=== PATIENT | female | born 1995 | race Caucasian/White ===

== ENCOUNTER 2022-01-02 05:11 | Observation (INO) ==
[2022-01-02] MEDS ORDERED: IOPAMIDOL 100 ML BOTTLE IV ONE (05:12)
--- NOTE | 2022-01-02 05:27 | Emergency Department Note ---
Nausea/Vomiting/Diarrhea HPI General Chief complaint: Nausea/Vomiting/Diarrhea Stated complaint: vomiting Time Seen by Provider: 01/02/22 05:26 Source: patient Mode of arrival: wheelchair Limitations: no limitations History of Present Illness HPI Narrative: Narrative: 26-year-old female presents emerged department complaining of terrible diarrhea that began at 0 230 which is watery, and vomiting that began at 0 200. She states that she had a stomachache earlier in the day. She rates her discomfort as a 9 on a 0-to-10 scale. States it is constant. Nothing makes it better or worse. The location is diffuse abdomen. She says the pain radiates to her back. She states no one else around her has been ill. She was able to complete her shift of work which ended at 2 PM. Related Data Home Medications Medication Instructions Recorded Confirmed methocarbamol 750 mg tablet 750 mg PO QID 05/30/21 05/30/21 Previous Rx's Medication Instructions Recorded metronidazole 500 mg tablet 500 mg PO BID #14 tab 03/23/21 ondansetron HCl 4 mg tablet 4 mg PO Q8H PRN #30 tab 04/30/21 (Zofran) bupropion HCl 100 mg tablet 100 mg PO BID #60 tab 05/30/21 montelukast 10 mg tablet 10 mg PO QHS #90 tab 05/30/21 (Singulair) tramadol 50 mg tablet 50 mg PO BID PRN #60 tab 05/30/21 amoxicillin 875 mg-potassium 1 tab PO BID #20 tab 08/10/21 clavulanate 125 mg tablet (Augmentin) Allergies Allergy/AdvReac Type Severity Reaction Status Date / Time latex Allergy Mild Rash Verified 01/02/22 05:16 Review of Systems ROS ROS Narrative: Narrative: Constitutional: Denies fever Eyes: Denies eye discharge ENT ED: Denies throat pain or rhinorrhea Cardiovascular: Denies chest pain Respiratory: Denies shortness of breath Gastrointestinal: Reports abdominal pain, nausea, vomiting and diarrhea Musculoskeletal: Reports back pain Integumentary: Denies rash Neurological: Denies headache Hematological/Lymphatic: Denies easy bleeding PFSH Narrative Patient History Narrative: Narrative: Medical/Surgical/Family History All Active Problems Periodontal disease (Acute) Cervical lymphadenopathy (Acute) Chronic left shoulder pain (Acute) Chest pain (Acute) Allergies (Acute) AC joint pain (Acute) Left shoulder pain (Acute) Intractable nausea and vomiting (Acute) Cervical cancer screening (Acute) Dorsalgia of cervicothoracic region (Acute) Mood disorder (Chronic) Attention disturbance (Chronic) Congenital heart disease (Chronic) Wellness examination (Acute) Morbid obesity (Acute) Sialadenitis (Acute) Abscess, axilla (Acute) Gastroenteritis (Acute) Nausea, vomiting and diarrhea (Acute) Upper respiratory infection (Acute) Right otitis media (Acute) PFO (patent foramen ovale) (Chronic) Cigarette smoker (Chronic) Obesity (BMI 30.0-34.9) (Chronic) Panic disorder (Chronic) Medical History AC joint pain Allergies Attention disturbance Atypical chest pain Cervical cancer screening section wound seroma, Cigarette smoker Congenital heart disease Contusion of hand, right Costalchondritis Dorsalgia of cervicothoracic region Left shoulder pain Migraine Mood disorder Morbid obesity Obesity (BMI 30.0-34.9) Pain at surgical site Panic disorder PFO (patent foramen ovale) since ; no murmur; no procedures Transient global amnesia Wellness examination Wound drainage Surgical History History of cholecystectomy History of tubal ligation Previous section Status post cholecystectomy Family History Father Diabetes mellitus Mother Hypertensive disorder Malignant neoplasm of lung Diabetes mellitus Hypercholesterolemia Mental disorder Grandmother Chronic obstructive lung disease Maternal Pulmonary emphysema Maternal Heart disease Maternal Social History Smoking Status: Current every day smoker Alcohol Intake Frequency: holiday/special occasion only Substance Use: does not use Exam Narrative Narrative: Narrative: General Limitations: no limitations General appearance: Present alert and in distress Head Head: Present atraumatic and normocephalic Eye Eye: Present normal appearance; Absent scleral icterus ENT ENT: Present mucous membranes moist Neck Neck: Present normal inspection and trachea midline Respiratory Respiratory: Present normal lung sounds bilaterally; Absent respiratory distress Cardiovascular Cardiovascular: Present regular rate and tachycardia Adbominal Abdominal: Present soft and tenderness (Diffusely) Extremities Extremities: Present normal inspection Back Back: Present normal inspection and tenderness (Lumbar) Neurological Neurological: Present alert and oriented X3 Psychiatric Psychiatric: Present normal affect and normal mood Skin Skin: Present warm (WNL), dry and other (Significant amount of tattoos) Course Vital Signs Vital signs: Vital Signs Temperature 97.0 F 01/02/22 05:12 Pulse Rate 102 H 01/02/22 05:12 Respiratory Rate 22 01/02/22 05:12 Blood Pressure 124/92 01/02/22 05:12 Pulse Oximetry (%) 98 01/02/22 05:12 Temperature 97.0 F 01/02/22 05:12 Pulse Rate 118 H 01/02/22 11:01 Respiratory Rate 22 01/02/22 05:12 Blood Pressure 119/76 01/02/22 11:01 Pulse Oximetry (%) 95 01/02/22 11:01 MDM MDM Narrative Medical decision making narrative: Narrative: 26-year-old female presents to the emergency department with 3 hours of vomiting and 2 and half hours of diarrhea. Stomachache began earlier. Differential diagnosis includes SIRS, sepsis, gastrointestinal infection, food related illness, other Patient met SIRS criteria and a suspected gastrointestinal infection plus a heart rate of 102 and a respiratory rate greater than 20 (). (she did not have fever and white count is pending). Patient has been to be treated with Zofran 4 mg to control her nausea/vomiting and 4 mg of loperamide for the diarrhea. She will be fluid rehydrated with 30 mL/kg. Blood work is sent off to assess for sepsis. At 7 AM I signed the patient off to my colleague Dr. Valencia who will assume management of the patient and determination of disposition Lab Data Result diagrams: 01/02/22 06:10 01/02/22 06:10 Labs: Lab Results 01/02/22 01/02/22 01/02/22 Range/Units 06:10 06:10 06:10 WBC 9.6 (4.5-11.0) K/mcL RBC 4.98 (3.59-5.38) M/mcL Hgb 15.8 H (11.2-15.7) g/dL Hct 45.4 H (34.1-44.9) % MCV 91.2 (80.0-100.0) fL MCH 31.7 (26.0-34.0) pg MCHC 34.8 (31.0-36.0) g/dL RDW 11.5 (11.5-14.5) % Plt Count 174 (140-440) K/mcL MPV 10.6 H (7.4-10.4) fL Neut % (Auto) 86.8 H (38.0-78.0) % Lymph % (Auto) 5.6 L (15.5-49.0) % [place] % (Auto) 4.2 (1.0-12.0) % Eos % (Auto) 3.2 (0.0-7.0) % Baso % (Auto) 0.2 (0.0-2.0) % Lymph # (Auto) 0.54 L (1.50-4.80) K/mcL [place] # (Auto) 0.40 (0.10-0.90) K/mcL Eos # (Auto) 0.31 (0.00-0.70) K/mcL Baso # (Auto) 0.02 (0.00-0.30) K/mcL Absolute Neutrophils 8.33 H (1.80-8.00) K/mcL PT (11.9-14.5) sec INR (0.9-1.1) APTT (20.0-37.0) sec VBG Lactic Acid 1.3 (0.5-2.0) mmol/L Sodium 140 (133-145) mmol/L Potassium 3.6 (3.3-5.1) mmol/L Chloride 105 (96-108) mmol/L Carbon Dioxide 22 (22-30) mmol/L Anion Gap 13.0 (8.0-16.0) BUN 10 (6-20) mg/dL Creatinine 0.7 (0.6-1.1) mg/dL GFR Calculation 120 Glucose 113 H (70-105) mg/dL Calcium 9.0 (8.6-10.4) mg/dL Total Bilirubin 0.4 (0.1-1.0) mg/dL AST 19 (<32) U/L ALT 27 (<40) U/L Alkaline Phosphatase 70 (39-117) U/L Total Protein 7.0 (5.9-8.4) gm/dL Albumin 4.4 (3.2-5.2) gm/dL Globulin 2.6 (2.2-3.7) gm/dL Albumin/Globulin Ratio 1.7 (1.0-2.3) Urine Color Urine Appearance (Clear) Urine pH (5.0-9.0) Ur Specific [place] (1.000-1.035) Urine Protein (Negative) mg/dL Urine Glucose (UA) (Negative) mg/dL Urine Ketones (Negative) mg/dL Urine Occult Blood (Negative) mg/dL Urine Nitrate (Negative) Urine Bilirubin (Negative) mg/dL Urine Urobilinogen mg/dL Ur Leukocyte Esterase (Negative) /uL Ur Culture Indicated? 01/02/22 01/02/22 Range/Units 06:10 08:20 WBC (4.5-11.0) K/mcL RBC (3.59-5.38) M/mcL Hgb (11.2-15.7) g/dL Hct (34.1-44.9) % MCV (80.0-100.0) fL MCH (26.0-34.0) pg MCHC (31.0-36.0) g/dL RDW (11.5-14.5) % Plt Count (140-440) K/mcL MPV (7.4-10.4) fL Neut % (Auto) (38.0-78.0) % Lymph % (Auto) (15.5-49.0) % [place] % (Auto) (1.0-12.0) % Eos % (Auto) (0.0-7.0) % Baso % (Auto) (0.0-2.0) % Lymph # (Auto) (1.50-4.80) K/mcL [place] # (Auto) (0.10-0.90) K/mcL Eos # (Auto) (0.00-0.70) K/mcL Baso # (Auto) (0.00-0.30) K/mcL Absolute Neutrophils (1.80-8.00) K/mcL PT 13.7 (11.9-14.5) sec INR 1.0 (0.9-1.1) APTT 25.5 (20.0-37.0) sec VBG Lactic Acid (0.5-2.0) mmol/L Sodium (133-145) mmol/L Potassium (3.3-5.1) mmol/L Chloride (96-108) mmol/L Carbon Dioxide (22-30) mmol/L Anion Gap (8.0-16.0) BUN (6-20) mg/dL Creatinine (0.6-1.1) mg/dL GFR Calculation Glucose (70-105) mg/dL Calcium (8.6-10.4) mg/dL Total Bilirubin (0.1-1.0) mg/dL AST (<32) U/L ALT (<40) U/L Alkaline Phosphatase (39-117) U/L Total Protein (5.9-8.4) gm/dL Albumin (3.2-5.2) gm/dL Globulin (2.2-3.7) gm/dL Albumin/Globulin Ratio (1.0-2.3) Urine Color Yellow Urine Appearance Hazy A (Clear) Urine pH 5.0 (5.0-9.0) Ur Specific [place] 1.027 (1.000-1.035) Urine Protein Negative (Negative) mg/dL Urine Glucose (UA) Negative (Negative) mg/dL Urine Ketones Negative (Negative) mg/dL Urine Occult Blood Negative (Negative) mg/dL Urine Nitrate Negative (Negative) Urine Bilirubin Negative (Negative) mg/dL Urine Urobilinogen Negative mg/dL Ur Leukocyte Esterase Negative (Negative) /uL Ur Culture Indicated? No ED POC Tests ED POC Tests: HCG POC Results Negative Discharge Plan Patient/Caregiver Discharge Instructions Pt seen by GARMENT SORTER/PA only: No Patient Disposition: Still a Patient Condition: Fair Follow up with: No,PCP [Primary Care Provider] - Prescriptions: No Action methocarbamol 750 mg tablet 750 mg PO QID 0RF bupropion HCl 100 mg tablet 100 mg PO BID Qty: 60 3RF montelukast [Singulair] 10 mg tablet 10 mg PO QHS Qty: 90 3RF tramadol 50 mg tablet 50 mg PO BID PRN (Reason: pain) Qty: 60 0RF metronidazole 500 mg tablet 500 mg PO BID Qty: 14 0RF ondansetron HCl [Zofran] 4 mg tablet 4 mg PO Q8H PRN (Reason: nausea and vomiting) Qty: 30 0RF amoxicillin-pot clavulanate [Augmentin] 875-125 mg tablet 1 tab PO BID Qty: 20 0RF
[2022-01-02] MEDS ORDERED: ONDANSETRON 4 MG ODT TABLET SL ONE (05:35)
[2022-01-02] MEDS ORDERED: LOPERAMIDE 2 MG CAPSULE PO ONE (05:35)
[2022-01-02] MEDS ORDERED: 0.9 % SODIUM CHLORIDE 1,000 ML IV ONE (05:35)
[2022-01-02] MEDS ORDERED: 0.9 % SODIUM CHLORIDE 1,710 ML IV ONE (05:54)
[2022-01-02 06:50] LABS: Basophils # (Auto) 0.02 K/mcL (0.00-0.30); Basophils % (Auto) 0.2 % (0.0-2.0); Eosinophils # (Auto) 0.31 K/mcL (0.00-0.70); Eosinophils % (Auto) 3.2 % (0.0-7.0); Hematocrit 45.4 % (34.1-44.9); Hemoglobin 15.8 g/dL (11.2-15.7); Lymphocytes # (Auto) 0.54 K/mcL (1.50-4.80); Lymphocytes % (Auto) 5.6 % (15.5-49.0); Mean Cell Volume 91.2 fL (80.0-100.0); Mean Corpuscular HGB Conc 34.8 g/dL (31.0-36.0); Mean Platelet Volume 10.6 fL (7.4-10.4); Monocytes % (Auto) 4.2 % (1.0-12.0); Neutrophils % (Auto) 86.8 % (38.0-78.0); Platelet Count 174 K/mcL (140-440); RBC 4.98 M/mcL (3.59-5.38); Red Cell Distribution Width 11.5 % (11.5-14.5); WBC 9.6 K/mcL (4.5-11.0)
[2022-01-02] MEDS ORDERED: ONDANSETRON 4 MG/2 ML VIAL IV ONE (06:54)
[2022-01-02 07:01] LABS: Partial Thromboplastin Time 25.5 sec (20.0-37.0)
[2022-01-02 07:02] LABS: Prothrombin Time 13.7 sec (11.9-14.5)
[2022-01-02 07:10] LABS: ALT/SGPT 27 U/L (<40); AST/SGOT 19 U/L (<32); Albumin 4.4 gm/dL (3.2-5.2); Albumin/Globulin Ratio 1.7 (1.0-2.3); Alkaline Phosphatase 70 U/L (39-117); Bilirubin,Total 0.4 mg/dL (0.1-1.0); Blood Urea Nitrogen 10 mg/dL (6-20); Carbon Dioxide 22 mmol/L (22-30); Chloride 105 mmol/L (96-108); Globulin 2.6 gm/dL (2.2-3.7); Glomerular Filtration Rate 120; Glucose 113 mg/dL (70-105)
--- NOTE | 2022-01-02 08:16 | Emergency Department Note ---
Course Vital Signs Vital signs: Vital Signs Temperature 36.1 C 01/02/22 05:12 Pulse Rate 102 H 01/02/22 05:12 Respiratory Rate 22 01/02/22 05:12 Blood Pressure 124/92 01/02/22 05:12 Pulse Oximetry (%) 98 01/02/22 05:12 Temperature 36.1 C 01/02/22 05:12 Pulse Rate 108 H 01/02/22 12:40 Respiratory Rate 12 01/02/22 12:40 Blood Pressure 96/53 01/02/22 12:40 Pulse Oximetry (%) 95 01/02/22 12:40 MDM MDM Narrative Medical decision making narrative: Narrative: Patient who presented with less than 1 day of acute watery nausea vomiting diarrhea some generalized abdominal pain now a bit left lower quadrant evaluated by Dr. Casiano. Signed out to me pending lab results and final disposition On my evaluation she is resting comfortably in bed heart rate still tracely tachycardic but overall says she is feeling better no longer actively vomiting. On abdominal exam it is completely benign nontender throughout. CBC shows no leukocytosis, no anemia, coags within normal, lactic acid is normal 1.3, electrolytes also unremarkable bilirubin and LFTs normal Awaiting urinalysis Urinalysis negative for infection negative Does feel better on reevaluation still has some mild generalized abdominal discomfort exam is benign but she is still tachycardic around 110 has received her IV fluids. Will obtain CT of the abdomen CT shows enteritis suspected Reevaluation patient tolerated a p.o. challenge however heart rate still remains around 115 despite 2.7 L of IV fluids, overall does feel improved however given her persistent tachycardia in the setting of what appears to be a likely viral GI illness did speak with hospitalist who is agreeable for observation admission. Likely benefit from some further gradual hydration and symptom control. I do not see any evidence of bacterial infection or indication for antibiotics at this time. Lab Data Result diagrams: 01/02/22 06:10 01/02/22 06:10 Labs: Lab Results 01/02/22 01/02/22 01/02/22 Range/Units 06:10 06:10 06:10 WBC 9.6 (4.5-11.0) K/mcL RBC 4.98 (3.59-5.38) M/mcL Hgb 15.8 H (11.2-15.7) g/dL Hct 45.4 H (34.1-44.9) % MCV 91.2 (80.0-100.0) fL MCH 31.7 (26.0-34.0) pg MCHC 34.8 (31.0-36.0) g/dL RDW 11.5 (11.5-14.5) % Plt Count 174 (140-440) K/mcL MPV 10.6 H (7.4-10.4) fL Neut % (Auto) 86.8 H (38.0-78.0) % Lymph % (Auto) 5.6 L (15.5-49.0) % [place] % (Auto) 4.2 (1.0-12.0) % Eos % (Auto) 3.2 (0.0-7.0) % Baso % (Auto) 0.2 (0.0-2.0) % Lymph # (Auto) 0.54 L (1.50-4.80) K/mcL [place] # (Auto) 0.40 (0.10-0.90) K/mcL Eos # (Auto) 0.31 (0.00-0.70) K/mcL Baso # (Auto) 0.02 (0.00-0.30) K/mcL Absolute Neutrophils 8.33 H (1.80-8.00) K/mcL PT (11.9-14.5) sec INR (0.9-1.1) APTT (20.0-37.0) sec VBG Lactic Acid 1.3 (0.5-2.0) mmol/L Sodium 140 (133-145) mmol/L Potassium 3.6 (3.3-5.1) mmol/L Chloride 105 (96-108) mmol/L Carbon Dioxide 22 (22-30) mmol/L Anion Gap 13.0 (8.0-16.0) BUN 10 (6-20) mg/dL Creatinine 0.7 (0.6-1.1) mg/dL GFR Calculation 120 Glucose 113 H (70-105) mg/dL Calcium 9.0 (8.6-10.4) mg/dL Total Bilirubin 0.4 (0.1-1.0) mg/dL AST 19 (<32) U/L ALT 27 (<40) U/L Alkaline Phosphatase 70 (39-117) U/L Total Protein 7.0 (5.9-8.4) gm/dL Albumin 4.4 (3.2-5.2) gm/dL Globulin 2.6 (2.2-3.7) gm/dL Albumin/Globulin Ratio 1.7 (1.0-2.3) Urine Color Urine Appearance (Clear) Urine pH (5.0-9.0) Ur Specific [place] (1.000-1.035) Urine Protein (Negative) mg/dL Urine Glucose (UA) (Negative) mg/dL Urine Ketones (Negative) mg/dL Urine Occult Blood (Negative) mg/dL Urine Nitrate (Negative) Urine Bilirubin (Negative) mg/dL Urine Urobilinogen mg/dL Ur Leukocyte Esterase (Negative) /uL Ur Culture Indicated? 01/02/22 01/02/22 Range/Units 06:10 08:20 WBC (4.5-11.0) K/mcL RBC (3.59-5.38) M/mcL Hgb (11.2-15.7) g/dL Hct (34.1-44.9) % MCV (80.0-100.0) fL MCH (26.0-34.0) pg MCHC (31.0-36.0) g/dL RDW (11.5-14.5) % Plt Count (140-440) K/mcL MPV (7.4-10.4) fL Neut % (Auto) (38.0-78.0) % Lymph % (Auto) (15.5-49.0) % [place] % (Auto) (1.0-12.0) % Eos % (Auto) (0.0-7.0) % Baso % (Auto) (0.0-2.0) % Lymph # (Auto) (1.50-4.80) K/mcL [place] # (Auto) (0.10-0.90) K/mcL Eos # (Auto) (0.00-0.70) K/mcL Baso # (Auto) (0.00-0.30) K/mcL Absolute Neutrophils (1.80-8.00) K/mcL PT 13.7 (11.9-14.5) sec INR 1.0 (0.9-1.1) APTT 25.5 (20.0-37.0) sec VBG Lactic Acid (0.5-2.0) mmol/L Sodium (133-145) mmol/L Potassium (3.3-5.1) mmol/L Chloride (96-108) mmol/L Carbon Dioxide (22-30) mmol/L Anion Gap (8.0-16.0) BUN (6-20) mg/dL Creatinine (0.6-1.1) mg/dL GFR Calculation Glucose (70-105) mg/dL Calcium (8.6-10.4) mg/dL Total Bilirubin (0.1-1.0) mg/dL AST (<32) U/L ALT (<40) U/L Alkaline Phosphatase (39-117) U/L Total Protein (5.9-8.4) gm/dL Albumin (3.2-5.2) gm/dL Globulin (2.2-3.7) gm/dL Albumin/Globulin Ratio (1.0-2.3) Urine Color Yellow Urine Appearance Hazy A (Clear) Urine pH 5.0 (5.0-9.0) Ur Specific [place] 1.027 (1.000-1.035) Urine Protein Negative (Negative) mg/dL Urine Glucose (UA) Negative (Negative) mg/dL Urine Ketones Negative (Negative) mg/dL Urine Occult Blood Negative (Negative) mg/dL Urine Nitrate Negative (Negative) Urine Bilirubin Negative (Negative) mg/dL Urine Urobilinogen Negative mg/dL Ur Leukocyte Esterase Negative (Negative) /uL Ur Culture Indicated? No ED POC Tests ED POC Tests: HCG POC Results Negative Discharge Plan Patient/Caregiver Discharge Instructions Pt seen by PICKING SUPERVISOR/PA only: No Clinical Impression: Gastroenteritis, Nausea & vomiting, Diarrhea Patient Disposition: Xfer As Outpt/Obs ([facility]) Condition: Fair Follow up with: No,PCP [Primary Care Provider] - Prescriptions: No Action methocarbamol 750 mg tablet 750 mg PO QID 0RF bupropion HCl 100 mg tablet 100 mg PO BID Qty: 60 3RF montelukast [Singulair] 10 mg tablet 10 mg PO QHS Qty: 90 3RF tramadol 50 mg tablet 50 mg PO BID PRN (Reason: pain) Qty: 60 0RF metronidazole 500 mg tablet 500 mg PO BID Qty: 14 0RF ondansetron HCl [Zofran] 4 mg tablet 4 mg PO Q8H PRN (Reason: nausea and vomiting) Qty: 30 0RF amoxicillin-pot clavulanate [Augmentin] 875-125 mg tablet 1 tab PO BID Qty: 20 0RF
[2022-01-02] MEDS ORDERED: diphenhydrAMINE 50 MG/ML VIAL IV ONE (08:31)
[2022-01-02] MEDS ORDERED: METOCLOPRAMIDE 10 MG/2 ML VIAL IV ONE (08:31)
[2022-01-02 09:56] LABS: Appearance,Urine HAZY (Clear); Bilirubin,Urine Negative (Negative); Color,Urine YELLOW; Culture Indicated,Urine No; Glucose,Urine (UA) Negative (Negative); Ketones,Urine Negative (Negative); Leukocyte Esterase,Urine Negative /uL (Negative); Nitrate,Urine Negative (Negative); Protein,Urine Negative (Negative); Specific Gravity,Urine 1.027 (1.000-1.035); Urine Blood Negative (Negative); Urobilinogen,Urine Negative
--- NOTE | 2022-01-02 11:00 | Cat Scan Report ---
History: Left lower quadrant pain with vomiting and diarrhea technique: Following injection of intravenous nonionic contrast the patient was imaged during the portal venous phase from above the diaphragm through the symphysis pubis. Sagittal and coronal reformats were created. The radiation exposure was limited using dose reduction technology area FINDINGS: The lung bases are clear. The liver is normal in size. There is a small zone of focal fatty infiltrates in the left lobe adjacent to the falciform ligament. The gallbladder is been removed and there are clips in the gallbladder fossa. The bile ducts are nondilated. The spleen is normal in size and homogeneous. There is no mass or inflammation the pancreas. The adrenals and kidneys are normal. There is no kidney stone or radiographic evidence of pyelonephritis. The aorta and inferior vena cava are normal. There is no plaque formation. The uterus and left ovary are normal. There is a 1.5 x 2.2 cm cyst in the right ovary. This is probably a dominant follicle. The ring-enhancing corpus luteum seen in the right ovary on the prior CT done on 04/30/21 has resolved. The stomach contains a moderate amount of fluid. The wall is normal in thickness. There is also a moderate amount of fluid throughout the small intestine from the duodenum to the terminal ileum. Several loops of distal jejunum or proximal ileum in the left mid abdomen are mildly dilated and measure up to 3.9 cm transverse dimension. The terminal ileum measures 2.5 cm in diameter. At the ileocecal valve there is a small fat-containing lipoma. There is no evidence of a mass in or adjacent to the small bowel. The wall of the small intestine is not thickened or inflamed. There are very few air-fluid levels. Large intestine is largely decompressed and appears normal. The appendix is noninflamed. There is no ascites adenopathy mass or abscess within the abdomen or pelvis. Comparison with the prior CT from 04/30/21 shows the dilatation of the small bowel is a recurrent finding. IMPRESSION: Mildly dilated small intestine without evidence of inflammation or mechanical blockage. This may be due to enteritis. Dr. Valencia was called with the report Interpreted and Authenticated by: Prateek Noguera 01/02/22
--- NOTE | 2022-01-02 13:08 | Internal Med History&Physical ---
HPI History of Present Illness Patient information: Note initiated : 01/02/22 at 1:06 pm Service Date, if different from initiated Date: [] Patient: Chayito Roach a 26 y/o F admitted on for Vomiting. Chief Complaint: [] History of present illness: Ms. Roach is a 26 year old F who presents to the ER this morning with abrupt onset and progressive nausea, vomiting, diarrhea that started around late afternoon yesterday after she came back from work. She also complains of associated abdominal pain 4 out of 10 without radiation made worse during retching episodes, she however denies melena/hematochezia. She has had one episode of food poisoning few months ago but denies any recent precipitating events. She endorses to lightheadedness weakness dizziness. She is experience over 7 episodes of diarrhea in 24 hours. Initial work-up in the ER was consistent with SIRS/volume depletion. Patient was started on crystalloids and subsequently hospitalist service was consulted after she failed to improve despite 3 L of crystalloid boluses. At the time of my evaluation patient is alert and oriented. She is able to answer most the question. Her symptoms have since improved. She endorses history as above. She denies changes in medications, using laxative, fever, chills, joint pain or rash. She denies weight loss ROS 10 point review system was performed and is negative except as above PFSH PFSH All Active Problems (Updated 01/02/22 @ 13:11 by Jeb Valencia DO) Periodontal disease (Acute) Cervical lymphadenopathy (Acute) Chronic left shoulder pain (Acute) Chest pain (Acute) Gastroenteritis (Acute) Nausea & vomiting (Acute) Diarrhea (Acute) Allergies (Acute) AC joint pain (Acute) Left shoulder pain (Acute) Intractable nausea and vomiting (Acute) Cervical cancer screening (Acute) Dorsalgia of cervicothoracic region (Acute) Mood disorder (Chronic) Attention disturbance (Chronic) Congenital heart disease (Chronic) Wellness examination (Acute) Morbid obesity (Acute) Sialadenitis (Acute) Abscess, axilla (Acute) Gastroenteritis (Acute) Nausea, vomiting and diarrhea (Acute) Upper respiratory infection (Acute) Right otitis media (Acute) PFO (patent foramen ovale) (Chronic) Cigarette smoker (Chronic) Obesity (BMI 30.0-34.9) (Chronic) Panic disorder (Chronic) Medical History AC joint pain Allergies Attention disturbance Atypical chest pain Cervical cancer screening section wound seroma, Cigarette smoker Congenital heart disease Contusion of hand, right Costalchondritis Dorsalgia of cervicothoracic region Left shoulder pain Migraine Mood disorder Morbid obesity Obesity (BMI 30.0-34.9) Pain at surgical site Panic disorder PFO (patent foramen ovale) since ; no murmur; no procedures Transient global amnesia Wellness examination Wound drainage Surgical History History of cholecystectomy History of tubal ligation Previous section Status post cholecystectomy Family History Father Diabetes mellitus Mother Hypertensive disorder Malignant neoplasm of lung Diabetes mellitus Hypercholesterolemia Mental disorder Grandmother Chronic obstructive lung disease Maternal Pulmonary emphysema Maternal Heart disease Maternal Social History (Updated 02/15/21 @ 11:14 by Jessica Burgos) lives independently: Yes marital status: education level: high school occupational status: employed occupation: Shampoo Assistant sexually active: Yes physical activity: none smoking status: Current every day smoker alcohol intake frequency: holiday/special occasion only substance use type: does not use seatbelt use: always working smoke detector in home: Yes firearms in home: Yes MEDS/ALLERGIES Home Medications and Allergies Home Medications Medication Instructions Recorded Confirmed Type metronidazole 500 mg tablet 500 mg PO BID #14 tab 03/23/21 01/03/22 Rx ondansetron HCl 4 mg tablet 4 mg PO Q8H PRN #30 tab 04/30/21 01/03/22 Rx (Zofran) bupropion HCl 100 mg tablet 100 mg PO BID #60 tab 05/30/21 01/03/22 Rx methocarbamol 750 mg tablet 750 mg PO QID 05/30/21 01/03/22 History montelukast 10 mg tablet 10 mg PO QHS #90 tab 05/30/21 01/03/22 Rx (Singulair) tramadol 50 mg tablet 50 mg PO BID PRN #60 tab 05/30/21 01/03/22 Rx amoxicillin 875 mg-potassium 1 tab PO BID #20 tab 08/10/21 01/03/22 Rx clavulanate 125 mg tablet (Augmentin) Allergies Allergy/AdvReac Type Severity Reaction Status Date / Time latex Allergy Mild Rash Verified 01/02/22 05:16 EXAM Constitutional Vitals: Temp Pulse Resp BP Pulse Ox 97.0 F 108 H 12 96/53 95 01/02/22 05:12 01/02/22 12:40 01/02/22 12:40 01/02/22 12:40 01/02/22 12:40 Exam: Head appears normocephalic Oral cavity moist No ear or nose discharge Eyemovement symmetrical S1-S2 tachycardia on tele Nonlabored breathing Nondistended abdomen Lower extremity no cyanosis clubbing or joint swelling Skin no suspicious lesion Psych anxious but no hallucination Neuro normal higher function DATA Data Completed and Pending Labs: Labs from last 24 hours 01/02/22 01/02/22 01/02/22 08:20 06:10 06:10 WBC RBC Hgb Hct MCV MCH MCHC RDW Plt Count MPV Neut % (Auto) Lymph % (Auto) [place] % (Auto) Eos % (Auto) Baso % (Auto) Lymph # (Auto) [place] # (Auto) Eos # (Auto) Baso # (Auto) Absolute Neutrophils PT 13.7 INR 1.0 APTT 25.5 VBG Lactic Acid 1.3 Sodium Potassium Chloride Carbon Dioxide Anion Gap BUN Creatinine GFR Calculation Glucose Calcium Total Bilirubin AST ALT Alkaline Phosphatase Total Protein Albumin Globulin Albumin/Globulin Ratio Urine Color Yellow Urine Appearance Hazy A Urine pH 5.0 Ur Specific [place] 1.027 Urine Protein Negative Urine Glucose (UA) Negative Urine Ketones Negative Urine Occult Blood Negative Urine Nitrate Negative Urine Bilirubin Negative Urine Urobilinogen Negative Ur Leukocyte Esterase Negative Ur Culture Indicated? No 01/02/22 01/02/22 06:10 06:10 WBC 9.6 RBC 4.98 Hgb 15.8 H Hct 45.4 H MCV 91.2 MCH 31.7 MCHC 34.8 RDW 11.5 Plt Count 174 MPV 10.6 H Neut % (Auto) 86.8 H Lymph % (Auto) 5.6 L [place] % (Auto) 4.2 Eos % (Auto) 3.2 Baso % (Auto) 0.2 Lymph # (Auto) 0.54 L [place] # (Auto) 0.40 Eos # (Auto) 0.31 Baso # (Auto) 0.02 Absolute Neutrophils 8.33 H PT INR APTT VBG Lactic Acid Sodium 140 Potassium 3.6 Chloride 105 Carbon Dioxide 22 Anion Gap 13.0 BUN 10 Creatinine 0.7 GFR Calculation 120 Glucose 113 H Calcium 9.0 Total Bilirubin 0.4 AST 19 ALT 27 Alkaline Phosphatase 70 Total Protein 7.0 Albumin 4.4 Globulin 2.6 Albumin/Globulin Ratio 1.7 Urine Color Urine Appearance Urine pH Ur Specific [place] Urine Protein Urine Glucose (UA) Urine Ketones Urine Occult Blood Urine Nitrate Urine Bilirubin Urine Urobilinogen Ur Leukocyte Esterase Ur Culture Indicated? A/P Narrative A/P Narrative: 26-year-old with acute gastroenteritis/volume depletion * Acute gastroenteritis-likely infectious. Continue supportive treatment/crystalloid/antinausea medications. * SIRS continue crystalloids * Severe volume depletion continue crystalloids * Anxiety disorder continue bupropion * Prophylaxis early ambulation PLAN * Obs admit * Supportive treatment Time Spent With Patient Time: Total time spent is greater than 50% in coordination of care (as documented) at patient's floor/unit and/or counseling patient:
[2022-01-02] MEDS ORDERED: MAGNESIUM SULFATE 2 GM/50 ML BAG IV PRN (13:53)
[2022-01-02] MEDS ORDERED: ONDANSETRON 4 MG/2 ML VIAL IV PRN (13:53)
[2022-01-02] MEDS ORDERED: ACETAMINOPHEN 650 MG/65 ML BAG IV PRN (13:53)
[2022-01-02] MEDS ORDERED: guaiFENesin/CODEINE 10 ML UDC PO PRN (13:53)
[2022-01-02] MEDS ORDERED: POTASSIUM CHLORIDE 40 MEQ in DEXTROSE 5% IN WATER 500 ML IV PRN (13:53)
[2022-01-02] MEDS ORDERED: ONDANSETRON 4 MG ODT TABLET SL PRN (13:53)
[2022-01-02] MEDS ORDERED: MELATONIN 3 MG TABLET PO PRN (13:53)
[2022-01-02] MEDS: LACTATED RINGERS 1,000 ML IV SCH (15:18)
[2022-01-02] MEDS: ACETAMINOPHEN 325 MG TABLET PO PRN ×2 (15:18→21:17)
[2022-01-02] MEDS: 0.9 % SODIUM CHLORIDE 1,000 ML IV SCH (16:47)
[2022-01-03] MEDS: LACTATED RINGERS 1,000 ML IV SCH ×4 (00:35→18:44)
[2022-01-03 06:36] LABS: Basophils # (Auto) 0.01 K/mcL (0.00-0.30); Basophils % (Auto) 0.3 % (0.0-2.0); Eosinophils # (Auto) 0.11 K/mcL (0.00-0.70); Hematocrit 39.4 % (34.1-44.9); Hemoglobin 13.7 g/dL (11.2-15.7); Lymphocytes # (Auto) 0.88 K/mcL (1.50-4.80); Lymphocytes % (Auto) 24.3 % (15.5-49.0); Mean Cell Volume 92.1 fL (80.0-100.0); Mean Corpuscular HGB Conc 34.8 g/dL (31.0-36.0); Monocytes % (Auto) 8.3 % (1.0-12.0); Neutrophils % (Auto) 64.1 % (38.0-78.0); Platelet Count 132 K/mcL (140-440); RBC 4.28 M/mcL (3.59-5.38); Red Cell Distribution Width 11.3 % (11.5-14.5); WBC 3.6 K/mcL (4.5-11.0)
[2022-01-03 06:59] LABS: ALT/SGPT 20 U/L (<40); AST/SGOT 16 U/L (<32); Albumin 3.4 gm/dL (3.2-5.2); Albumin/Globulin Ratio 1.4 (1.0-2.3); Alkaline Phosphatase 54 U/L (39-117); Bilirubin,Direct < 0.2 mg/dL (0-0.3); Bilirubin,Total 0.4 mg/dL (0.1-1.0); Blood Urea Nitrogen 4 mg/dL (6-20); Calcium 8.4 mg/dL (8.6-10.4); Carbon Dioxide 22 mmol/L (22-30); Chloride 104 mmol/L (96-108); Globulin 2.5 gm/dL (2.2-3.7); Glomerular Filtration Rate 126; Glucose 74 mg/dL (70-105); Lactate Dehydrogenase 165 U/L (135-225); Phosphorous 2.2 mg/dL (2.5-4.5); Triglycerides 63 mg/dL (<150); Uric Acid 3.7 mg/dL (2.5-8.0)
[2022-01-03] MEDS ORDERED: NEUTRA PHOS 1 PACKET PO PRN (07:49)
[2022-01-03] MEDS: MULTIVIT,THER IRON,CA,FA & MIN 1 TABLET PO SCH (08:38)
[2022-01-03] MEDS: ACETAMINOPHEN 325 MG TABLET PO PRN ×2 (10:28→18:43)
--- NOTE | 2022-01-03 11:12 | Internal Med Progress Note ---
SUBJECTIVE Subjective Patient information: Note initiated : 01/03/22 at 11:10 am Service Date, if different from initiated Date: [] Patient: Chayito Roach a 26 y/o F admitted on 01/02/22 for Vomiting. Chief Complaint: [] Interval history: Ms. Roach is a 26 year old F who presents to the ER this morning with abrupt onset and progressive nausea, vomiting, diarrhea that started around late afternoon yesterday after she came back from work. She also complains of associated abdominal pain 4 out of 10 without radiation made worse during re tching episodes, she however denies melena/hematochezia. She has had one episode of food poisoning few months ago but denies any recent precipitating events. She endorses to lightheadedness weakness dizziness. She is experience over 7 episodes of diarrhea in 24 hours. Initial work-up in the ER was consistent with SIRS/volume depletion. Patient was started on crystalloids and subsequently hospitalist service was consulted after she failed to improve despite 3 L of crystalloid boluses. 01/03-patient feeling a lot better. No overnight events. and son at bedside. 4 episodes of diarrhea since this morning. However denies lightheadedness dizziness abdominal pain cramping or bloody stool. Continue crystalloid/oral fluids. Low potassium and phosphorus on replacement. No fever chills Constitutional Vitals: Vital Signs Temp Pulse Resp BP Pulse Ox 97.2 F 88 20 104/65 91 01/03/22 08:00 01/03/22 08:00 01/03/22 08:00 01/03/22 08:00 01/03/22 08:00 Period Temp Pulse Resp BP Sys/Levine Pulse Ox Last 24 Hr 96.8 F-99.1 F 81-116 12-24 87-124/50-69 91-96 Intake and Output 01/02/22 01/03/22 01/03/22 21:59 05:59 13:59 Intake Total 1130 1150 120 Output Total 250 501 450 Balance 880 649 -330 Weight 101.378 kg Alert oriented No labored breathing Nondistended nontender abdomen No anxiety Intake & Output: Intake & Output 01/02/22 01/03/22 01/03/22 21:59 05:59 13:59 Intake Total 1130 1150 120 Output Total 250 501 450 Balance 880 649 -330 Weight 101.378 kg Intake: IV 1000 Lactated Ringers 1,000 ml @ 100 1000 mls/hr IV .Q10H [facility] Rx#: [id number] Oral 1130 150 120 Output: Void Amount 250 500 450 # of times incontinent of urine 1 Other: Meal Dinner Percent of Meal Consumed 50% 100% Feeding Ability Independent Urine Appearance Clear Clear Urine Color Bright Yellow Dark Yellow Urine Odor Normal Stool Size Moderate Stool Color Brown Stool Consistency Liquid Loose # Voids 1 # Bowel Movements 2 OBJ DATA Labs CBC & Chem 7: 01/03/22 05:09 01/03/22 05:09 Labs: Abnormal Lab Results 01/03/22 01/03/22 01/02/22 05:09 05:09 08:20 WBC 3.6 L Hgb Hct RDW 11.3 L Plt Count 132 L MPV 11.0 H Neut % (Auto) Lymph % (Auto) Lymph # (Auto) 0.88 L Absolute Neutrophils Potassium 3.2 L BUN 4 L Glucose Calcium 8.4 L Phosphorus 2.2 L Urine Appearance Hazy A 01/02/22 01/02/22 06:10 06:10 WBC Hgb 15.8 H Hct 45.4 H RDW Plt Count MPV 10.6 H Neut % (Auto) 86.8 H Lymph % (Auto) 5.6 L Lymph # (Auto) 0.54 L Absolute Neutrophils 8.33 H Potassium BUN Glucose 113 H Calcium Phosphorus Urine Appearance Meds: Medications Acetaminophen (Acetaminophen 325 Mg Tablet) 650 mg PO Q4-6HP PRN; Protocol PRN Reason: Per Pain Protocol/Fever > 101 Last Admin: 01/03/22 10:28 Dose: 650 mg Documented by: Guaifenesin/Codeine Phosphate (Guaifenesin/Codeine 10 Ml Udc) 10 ml PO Q4HP PRN PRN Reason: Cough Potassium Chloride 40 meq/ (Dextrose) 520 mls @ 130 mls/hr IV UD PRN PRN Reason: K+ = or < 3.5 Last Admin: 01/03/22 07:35 Dose: 130 mls/hr Documented by: Magnesium Sulfate (Magnesium Sulfate) 2 gm in 50 mls @ 50 mls/hr IV UD PRN PRN Reason: MG = or < 1.7 Sodium Chloride (Sodium Chloride 0.9%) 1,000 mls @ 0 mls/hr IV BOLUS SHIVA Last Admin: 01/02/22 16:47 Dose: Not Given Documented by: Lactated Ringer's (Lactated Ringers) 1,000 mls @ 100 mls/hr IV .Q10H SHIVA Stop: 01/03/22 19:52 Last Admin: 01/03/22 02:44 Dose: 100 mls/hr Documented by: Acetaminophen (Ofirmev) 650 mg in 65 mls @ 130 mls/hr IV Q6HP PRN; Protocol PRN Reason: Per Pain Protocol/Fever > 101 Iron Carb/Multivit/[place]/Folic Acid (Multivit,Ther Iron,Ca,Fa & Min 1 Tablet) 1 tab PO DAILY SHIVA Last Admin: 01/03/22 08:38 Dose: 1 tab Documented by: Melatonin (Melatonin 3 Mg Tablet) 3 mg PO HSP PRN PRN Reason: Insomnia Ondansetron HCl (Ondansetron 4 Mg Odt Tablet) 4 mg SL Q4-6HP PRN; Protocol PRN Reason: Nausea And Vomiting Last Admin: 01/03/22 10:59 Dose: 4 mg Documented by: Ondansetron HCl (Ondansetron 4 Mg/2 Ml Vial) 4 mg IV Q4-6HP PRN; Protocol PRN Reason: Nausea And Vomiting Potassium/Phosphorus/Sodium (Neutra Phos 1 Packet) 2 packet PO DAILYP PRN PRN Reason: For phosphorus less than 2.5 Last Admin: 01/03/22 08:38 Dose: 2 packet Documented by: A/P Narrative A/P Narrative: 26-year-old with acute gastroenteritis/volume depletion * Acute gastroenteritis-likely infectious. Clinically improving on supportive treatment/crystalloid/antinausea medications. * Low potassium and phosphorus on replacement * Severe volume depletion continue oral and IV fluids * Anxiety disorder continue bupropion * Prophylaxis early ambulation PLAN * Stool cultures/norovirus * Potassium and phosphorus replacement * Supportive treatment Time Spent With Patient Time: Total time spent is greater than 50% in coordination of care (as documented) at patient's floor/unit and/or counseling patient: QUALITY Stroke Symptom Onset Unknown: No VTE Deep Vein Thrombosis/Pulmonary Embolism Present on Admission: No
[2022-01-03] MEDS: 0.9 % SODIUM CHLORIDE 1,000 ML IV SCH (16:14)
[2022-01-04 07:24] LABS: Basophils # (Auto) 0.01 K/mcL (0.00-0.30); Basophils % (Auto) 0.3 % (0.0-2.0); Eosinophils % (Auto) 10.1 % (0.0-7.0); Hematocrit 40.3 % (34.1-44.9); Hemoglobin 13.6 g/dL (11.2-15.7); Lymphocytes # (Auto) 1.43 K/mcL (1.50-4.80); Lymphocytes % (Auto) 36.1 % (15.5-49.0); Mean Cell Volume 92.6 fL (80.0-100.0); Mean Corpuscular HGB Conc 33.7 g/dL (31.0-36.0); Mean Platelet Volume 11.2 fL (7.4-10.4); Monocytes # (Auto) 0.39 K/mcL (0.10-0.90); Monocytes % (Auto) 9.8 % (1.0-12.0); Neutrophils % (Auto) 43.7 % (38.0-78.0); Platelet Count 136 K/mcL (140-440); RBC 4.35 M/mcL (3.59-5.38); Red Cell Distribution Width 11.4 % (11.5-14.5)
[2022-01-04 07:47] LABS: ALT/SGPT 25 U/L (<40); AST/SGOT 24 U/L (<32); Albumin 3.4 gm/dL (3.2-5.2); Albumin/Globulin Ratio 1.4 (1.0-2.3); Alkaline Phosphatase 52 U/L (39-117); Bilirubin,Direct < 0.2 mg/dL (0-0.3); Bilirubin,Total 0.2 mg/dL (0.1-1.0); Blood Urea Nitrogen 3 mg/dL (6-20); Calcium 8.4 mg/dL (8.6-10.4); Carbon Dioxide 21 mmol/L (22-30); Chloride 107 mmol/L (96-108); Globulin 2.4 gm/dL (2.2-3.7); Glomerular Filtration Rate 126; Glucose 75 mg/dL (70-105); Lactate Dehydrogenase 191 U/L (135-225); Phosphorous 2.6 mg/dL (2.5-4.5); Triglycerides 99 mg/dL (<150); Uric Acid 3.6 mg/dL (2.5-8.0)
--- NOTE | 2022-01-04 08:14 | XRay Report ---
HISTORY: Vomiting, evaluate for interval change FINDINGS: Right diaphragm is mild to moderately elevated. This has become more apparent compared with prior x-rays done on 10/24/2021 and 12/10/2021. The lungs are clear. Heart size, pulmonary vasculature, mediastinum and germain are normal. No free intra-abdominal air is present. The stomach does not appear distended. IMPRESSION: Elevated right diaphragm of undetermined etiology. The chest is otherwise normal. Interpreted and Authenticated by: Prateek Noguera 01/04/22
[2022-01-04] MEDS: MULTIVIT,THER IRON,CA,FA & MIN 1 TABLET PO SCH (08:42)
--- NOTE | 2022-01-04 11:32 | Discharge Summary ---
Discharge Provider Provider Patient information: Note initiated : 01/04/22 at 11:27 am Service Date, if different from initiated Date: [] Patient: Chayito Roach 26 y/o F admitted on 01/02/22 for Vomiting. Chief Complaint: [] Date of admission: 01/02/22 13:39 Discharge date: 01/04/22 Primary care physician: PCP No Consults: 01/02/22 12:24 Consult to Physician [CONS] Stat Comment: Consulting Provider: Nader Wilkins Reason For Exam: Physician to Consult Discharge Meds Discharge Medications Home Medications ondansetron HCl 4 mg tablet (Zofran) 4 mg PO Q8H PRN #30 tab 04/30/21 [Rx Confirmed 01/03/22 Last Taken 04/09/21] bupropion HCl 100 mg tablet 100 mg PO BID #60 tab 05/30/21 [Rx Confirmed 01/03/22 Last Taken Unknown] methocarbamol 750 mg tablet 750 mg PO QID 05/30/21 [History Confirmed 01/03/22 Last Taken Unknown] montelukast 10 mg tablet (Singulair) 10 mg PO QHS #90 tab 05/30/21 [Rx Confirmed 01/03/22 Last Taken Unknown] tramadol 50 mg tablet 50 mg PO BID PRN #60 tab 05/30/21 [Rx Confirmed 01/03/22 Last Taken Unknown] COURSE Hospital Course Hospital course: Discharge diagnosis * Acute gastroenteritis-likely infectious. Clinically improving on supportive treatment/crystalloid/antinausea medications. * Low potassium and phosphorus on replacement * Severe volume depletion continue oral and IV fluids * Anxiety disorder continue bupropion Brief hospital course Ms. Roach is a 26 year old F who presents to the ER this morning with abrupt onset and progressive nausea, vomiting, diarrhea that started around late afternoon yesterday after she came back from work. She also complains of associated abdominal pain 4 out of 10 without radiation made worse during retching episodes, she however denies melena/hematochezia. She has had one episode of food poisoning few months ago but denies any recent precipitating events. She endorses to lightheadedness weakness dizziness. She is experience over 7 episodes of diarrhea in 24 hours. Initial work-up in the ER was consistent with SIRS/volume depletion. Patient was started on crystalloids and subsequently hospitalist service was consulted after she failed to improve despite 3 L of crystalloid boluses. 01/03-patient feeling a lot better. No overnight events. and son at bedside. 4 episodes of diarrhea since this morning. However denies lightheadedness dizziness abdominal pain cramping or bloody stool. Continue crystalloid/oral fluids. Low potassium and phosphorus on replacement. No fever chills 01/04-patient doing a lot better. Nausea vomiting diarrhea resolved. Able to tolerate orally. Stable hemodynamics. Electrolytes normalized with aggressive replacement. Discharging home with advised to follow-up with PCP and continue adequate hydration. Discharge diagnosis: Acute gastroenteritis likely viral, clinically resolved Time Spent with Patient Time attestation: Total time spent providing and/or coordinating discharge services: EXAM Constitutional Vitals: Temp Pulse Resp BP Pulse Ox 97.8 F 69 20 95/56 95 01/04/22 07:14 01/04/22 07:14 01/04/22 07:14 01/04/22 07:14 01/04/22 07:14 Discharge Data Data Completed and Pending Labs on day of discharge: Labs from last 24 hours 01/04/22 01/04/22 01/03/22 05:58 05:58 15:56 WBC 4.0 L RBC 4.35 Hgb 13.6 Hct 40.3 MCV 92.6 MCH 31.3 MCHC 33.7 RDW 11.4 L Plt Count 136 L MPV 11.2 H Neut % (Auto) 43.7 Lymph % (Auto) 36.1 [place] % (Auto) 9.8 Eos % (Auto) 10.1 H Baso % (Auto) 0.3 Lymph # (Auto) 1.43 L [place] # (Auto) 0.39 Eos # (Auto) 0.40 Baso # (Auto) 0.01 Absolute Neutrophils 1.73 L Sodium 138 Potassium 3.7 Chloride 107 Carbon Dioxide 21 L Anion Gap 10.0 BUN 3 L Creatinine 0.6 GFR Calculation 126 Glucose 75 Uric Acid 3.6 Calcium 8.4 L Phosphorus 2.6 Magnesium 1.9 Total Bilirubin 0.2 Direct Bilirubin < 0.2 GGT 11 AST 24 ALT 25 Alkaline Phosphatase 52 Lactate Dehydrogenase 191 Total Protein 5.8 L Albumin 3.4 Globulin 2.4 Albumin/Globulin Ratio 1.4 Triglycerides 99 Stool Calprotectin Pending Stool Norovirus Ag Pending Preliminary micro results at discharge 01/02/22 06:28 Blood Culture - Preliminary Blood 01/02/22 06:10 Blood Culture - Preliminary Blood Discharge Plan Patient/Caregiver Discharge Instructions Activity: increase activity as tolerated Diet: Regular Diet Activity Restrictions/Additional Instructions: Adequate hydration Prescriptions: Continued methocarbamol 750 mg tablet 750 mg PO QID 0RF bupropion HCl 100 mg tablet 100 mg PO BID Qty: 60 3RF montelukast [Singulair] 10 mg tablet 10 mg PO QHS Qty: 90 3RF tramadol 50 mg tablet 50 mg PO BID PRN (Reason: pain) Qty: 60 0RF ondansetron HCl [Zofran] 4 mg tablet 4 mg PO Q8H PRN (Reason: nausea and vomiting) Qty: 30 0RF Discontinued metronidazole 500 mg tablet 500 mg PO BID Qty: 14 0RF amoxicillin-pot clavulanate [Augmentin] 875-125 mg tablet 1 tab PO BID Qty: 20 0RF Follow Up Plan Follow up with: No,PCP [Primary Care Provider] - Patient Disposition: Home, Self-Care Prognosis: Fair Rehab Potential: Fair I certify that the patient requires SNF services: No Overall status at discharge: patient is progressing back to baseline Discharge Orders: Discharge Order (Routine); Ordered 01/04/22 Ordered By: Nader LOZANO VTE Deep Vein Thrombosis/Pulmonary Embolism Present on Admission: No
== END 2022-01-04 12:20 | disposition home or self-care (01) ==
LOC: ED 05:11 → MEDSUR 05:11
PROVIDERS: ADMIT Internal Medicine; ATTEND Internal Medicine